=== PATIENT | female | born 1975 | race Hispanic/Latino ===

== ENCOUNTER 2024-07-03 17:37 | Outpatient (CLI) | payer BC, SELFPAY | END 2024-07-03 17:38 | disposition home or self-care (01) | LOC: CSHRAD 17:37 | PROVIDERS: ATTEND Nurse Practitioner Family | DX: R06.02 Shortness of breath (principal); R05.9 Cough, unspecified; R50.9 Fever, unspecified | CPT/HCPCS: 71046 ==